=== PATIENT | female | born 1965 | race Caucasian/White ===

== ENCOUNTER → 2019-07-26 09:57 | Outpatient (CLI) | payer OTHER, SELFPAY ==
--- NOTE | 2019-07-26 | DI.MG.S_ITS ---
BILATERAL DIGITAL DIAGNOSTIC MAMMOGRAM 3D/2D WITH AUGMENTATION: 07/26/2019 CLINICAL: Left breast lump. Comparison is made to exams dated: 08/17/2018 mammogram, 06/21/2017 mammogram, and 09/22/2015 mammogram - [facility]. There are scattered fibroglandular elements in both breasts. Bilateral prepectoral silicone implants are present. There are irregular contor of the right implant. There are diffuse extracapsular silicone collections in the left breast. There is a stable extracapsular silicone in the left breast at 8 o'clock anterior depth. This likely correlates as palpated. No other significant masses or calcifications seen in either breast. IMPRESSION: INCOMPLETE: NEEDS ADDITIONAL IMAGING EVALUATION Palpable abnormality likely corresponds to extracapsular silicone in the left breast. A target ultrasound is recommended for further evaluation. This exam was interpreted at Station ID: [id number]. NOTE: For mammograms, a report in lay terms will be sent to the patient. Approximately 15% of breast malignancies will not be visualized mammographically. In the management of a palpable breast mass, a negative mammogram must not discourage biopsy of a clinically suspicious lesion. Electronically Signed By: Willie Martin M.D. slc/:07/26/2019 11:29:10 letter sent: Additional Imaging Needed ACR BI-RADS Category 0: Incomplete [id number]
--- NOTE | 2019-07-26 | DI.US.S_ITS ---
LIMITED ULTRASOUND OF LEFT BREAST: 07/26/2019 CLINICAL: Palpable left breast lump. Comparison is made to exams dated: 07/26/2019 mammogram - [facility], 08/17/2018 mammogram, 06/21/2017 mammogram, and 09/22/2015 mammogram - [facility]. Color flow and real-time ultrasound of the left breast 8-9 o'clock region were performed. Teresa scale images of the real-time examination were reviewed. Sensitivity is decreased due to free silicone in the left breast. There is a benign 2 cm x 1.1 cm x 1.3 cm round cyst in the left breast at 9 o'clock posterior depth 7 cm from the nipple. This round cyst is anechoic with a well-defined boundary and posterior acoustic enhancement. This may correlates as palpated. Color flow imaging demonstrates that there is no increase in vascularity. There also is a benign 0.6 cm round cyst in the left breast at 8:30 o'clock posterior depth 5 cm from the nipple. This round cyst is anechoic with a well-defined boundary and posterior acoustic enhancement. Color flow imaging demonstrates that there is no increase in vascularity. IMPRESSION: BENIGN There is no sonographic evidence of malignancy. Simple cyst in the left breast at 9 o'clock posterior depth measuring 2 cm is benign. This may correlate to the palpable abnormality. Alternatively, the palpable abnormality may correspond to extracapsular silicone in this region. Simple cyst in the left breast at 8:30 o'clock posterior depth measuring 0.6 cm is benign. A 1 year screening mammogram is recommended. The patient was advised to monitor the palpable area for significant change and return to clinic earlier for further evaluation if a hard mass is palpated. The imaging findings were reviewed with the patient as well as recommendations. Review of implant ruptures was also discussed. The patient requested recommendation for breast surgeon to discuss possible replacement/removal of breast implants. Discussion occurred over the phone with Dr. Martin who is remotely located on day of examination. This exam was interpreted at Station ID: [id number]. Electronically Signed By: Willie Martin M.D. slc/:07/26/2019 12:57:12 letter sent: Clinical Evaluation Ultrasound BI-RADS: 2 Benign
== END ==
PROVIDERS: Visit Provider Family Medicine
DX: R92.8 Other abnormal and inconclusive findings on diagnostic imaging of breast (principal); N60.02 Solitary cyst of left breast; N63.20 Unspecified lump in the left breast, unspecified quadrant; Z98.82 Breast implant status
CPT/HCPCS: 76642; 77066; G0279

== ENCOUNTER 2022-03-07 10:53 | Emergency (ER) | payer OTHER, SELFPAY ==
[2022-03-07] VITALS (7 sets, daily range): BP systolic 125–134; BP diastolic 60–68; PULSE 84–93; RESP 16; TEMP 36.2; O2SAT 97–99; BMI 33.9
--- NOTE | 2022-03-07 11:21 | ED_ITS ---
HPI - General Adult General Chief complaint: Abdominal Pain Stated complaint: R/O appendicitis or diverticulitis- ref by [facility] Time Seen by Provider: 03/07/22 11:13 Source: patient Mode of arrival: Ambulatory Limitations: no limitations History of Present Illness HPI narrative: Patient is a 56-year-old female. Is status post cholecystectomy. Is here for evaluation of a couple days of lower abdominal discomfort. She did have a bowel movement yesterday which she states was slightly harder than normal but does not necessarily feel like she is constipated. No urinary symptoms. No vaginal bleeding or discharge. No fevers. Was seen at the walk-in clinic and was sent to the emergency department for further evaluation. No vomiting. Related Data Previous Rx's Medication Instructions Recorded ciprofloxacin HCl 500 mg tablet 500 mg PO Q12H 10 days #20 tabs 03/07/22 (Cipro) metronidazole 500 mg tablet 500 mg PO TID 10 days #30 tabs 03/07/22 Review of Systems Review of Systems ROS Unobtainable: All systems reviewed & are unremarkable except as noted in HPI and below Constitutional Constitutional: Denies fever(s) Cardiovascular Cardiovascular: Denies chest pain Respiratory Respiratory: Reports system reviewed and no additional complaints, except as documented Gastrointestinal Gastrointestinal: Reports system reviewed and no additional complaints, except as documented Genitourinary Genitourinary: Reports system reviewed and no additional complaints, except as documented Musculoskeletal Musculoskeletal: Reports system reviewed and no additional complaints, except as documented Integumentary/Breasts Skin/Breast: Reports system reviewed and no additional complaints, except as documented Hematologic/Lymphatic On Anticoagulants: No Patient History Medical History Healthy adult Surgical History History of cholecystectomy Social History lives independently: Yes Exam Initial Vital Signs Initial Vital Signs: Vital Signs Blood Pressure 131/68 03/07/22 11:03 Const General: cooperative and healthy appearing [facility] Head: normal to inspection and normocephalic Resp Effort & Inspection: normal respiratory effort Auscultation: clear to auscultation bilaterally Cardio Rate: regular rate Rhythm: regular rhythm GI Inspection: normal to inspection Palpation: No firm and tender (Bilateral lower abdomen) Skin General: no rashes or lesions noted Neuro General: patient alert, patient awake and moves all extremities Extrem General: normal to inspection Psych Appearance: grossly normal and well kempt Course Orders Ordered: ED Orders 03/07/22 11:09 Urine Culture Stat Urine Microscopic Stat 03/07/22 11:16 Complete Blood Count AUTO DIFF Stat Comprehensive Metabolic Panel Stat Lipase Stat Partial Thromboplastin Time Stat Prothrombin Time INR Stat 03/07/22 11:22 CT abdomen pelvis w con Stat Discontinued Medications Sodium Chloride (Normal Saline 0.9%) 1,000 mls @ 1,000 mls/hr IV BOLUS ONE Stop: 03/07/22 12:21 Last Infusion: 03/07/22 11:57 Dose: 0 mls/hr Documented By: Admin: 03/07/22 11:30 Dose: 1,000 mls/hr Documented By: JAMAAL Vital Signs Vital signs: Vital Signs - 8 hr 03/07/22 11:05 03/07/22 11:03 03/07/22 11:04 Temperature 97.1 F L Pulse Rate 93 H 90 Respiratory Rate 16 Blood Pressure 131/68 131/68 Pulse Oximetry 99 99 Oxygen Delivery Method Room Air 03/07/22 11:16 03/07/22 11:16 Temperature Pulse Rate 87 Respiratory Rate Blood Pressure 134/67 Pulse Oximetry 99 Oxygen Delivery Method Medical Decision Making Lab Data Lab results reviewed: Yes I reviewed the patient's lab results. Result diagrams: 03/07/22 11:16 03/07/22 11:16 Labs: Lab Results 03/07/22 03/07/22 03/07/22 Range/Units 11:09 11:16 11:16 WBC 9.2 (4.5-11.0) X10^3/uL RBC 3.97 L (4.0-5.2) X10^6/uL Hgb 12.3 (12.0-16.0) g/dL Hct 36.6 (36-46) % MCV 92.1 (80-100) fL MCH 30.9 (26-34) PG MCHC 33.6 (30-36) % RDW 13.6 (11.6-14.8) % Plt Count 205 (150-400) X10^3/uL Neut % (Auto) 70.1 (50-75) % Lymph % (Auto) 18.6 L (25-40) % [place] % (Auto) 9.9 (3-14) % Eos % (Auto) 0.7 L (2-4) % Baso % (Auto) 0.7 (0-2) % Neut # (Auto) 6400 (1874-9492) /uL Lymph # (Auto) 1700 (6539-2793) /uL [place] # (Auto) 900 (0-900) /uL Eos # (Auto) 100 (0-450) /uL Baso # (Auto) 100 (0-100) /uL PT (10.1-12.7) SECONDS INR (0.9-1.3) APTT (26.4-36.2) SECONDS Sodium 139 (137-145) mmol/L Potassium 4.0 (3.4-5.1) mmol/L Chloride 104 (98-107) mmol/L Carbon Dioxide 25 (22-32) mmol/L BUN 13 (7-17) mg/dL Creatinine 0.69 (0.52-1.04) mg/dL Estimated GFR > 60 (>60) mL/min BUN/Creatinine Ratio 18.8 (6-22) Glucose 104 H (70-100) mg/dL Calcium 8.8 (8.4-10.2) mg/dL Total Bilirubin 0.9 (0.2-1.3) mg/dL AST 26 (14-36) IU/L ALT 23 (<35) IU/L Alkaline Phosphatase 94 (38-126) U/L Total Protein 7.3 (6.3-8.2) g/dL Albumin 4.2 (3.5-5.0) g/dL Globulin 3.1 (1.7-4.1) g/dL Albumin/Globulin Ratio 1.4 (1.0-2.8) Lipase 138 (23-300) U/L Urine RBC 0-1/hpf (0-5/HPF) Urine WBC 1-5/hpf (0-5/HPF) Ur Squamous Epith Cells 1-5 /hpf (0-5/HPF) Urine Bacteria Few (2-10) H (None) Ur Culture Indicated? Specimen cultured 03/07/22 Range/Units 11:16 WBC (4.5-11.0) X10^3/uL RBC (4.0-5.2) X10^6/uL Hgb (12.0-16.0) g/dL Hct (36-46) % MCV (80-100) fL MCH (26-34) PG MCHC (30-36) % RDW (11.6-14.8) % Plt Count (150-400) X10^3/uL Neut % (Auto) (50-75) % Lymph % (Auto) (25-40) % [place] % (Auto) (3-14) % Eos % (Auto) (2-4) % Baso % (Auto) (0-2) % Neut # (Auto) (8798-6064) /uL Lymph # (Auto) (8016-8889) /uL [place] # (Auto) (0-900) /uL Eos # (Auto) (0-450) /uL Baso # (Auto) (0-100) /uL PT 13.8 H (10.1-12.7) SECONDS INR 1.2 (0.9-1.3) APTT 32 (26.4-36.2) SECONDS Sodium (137-145) mmol/L Potassium (3.4-5.1) mmol/L Chloride (98-107) mmol/L Carbon Dioxide (22-32) mmol/L BUN (7-17) mg/dL Creatinine (0.52-1.04) mg/dL Estimated GFR (>60) mL/min BUN/Creatinine Ratio (6-22) Glucose (70-100) mg/dL Calcium (8.4-10.2) mg/dL Total Bilirubin (0.2-1.3) mg/dL AST (14-36) IU/L ALT (<35) IU/L Alkaline Phosphatase (38-126) U/L Total Protein (6.3-8.2) g/dL Albumin (3.5-5.0) g/dL Globulin (1.7-4.1) g/dL Albumin/Globulin Ratio (1.0-2.8) Lipase (23-300) U/L Urine RBC (0-5/HPF) Urine WBC (0-5/HPF) Ur Squamous Epith Cells (0-5/HPF) Urine Bacteria (None) Ur Culture Indicated? Urine Dip Bedside Urine Glucose Negative Bedside Urine Bilirubin - Negative Bedside Urine Ketone - Negative Urine Specific [place] 1.010 Bedside Urine Occult Blood +/- Bedside Urine pH 6.0 Bedside Urine Protein - Negative Bedside Urine Urobilinogen - Negative Bedside Urine Nitrite - Negative Bedside Urine Leukocytes + 70 Esterase Point of care testing: Urine Dip Bedside Urine Glucose Negative Bedside Urine Bilirubin - Negative Bedside Urine Ketone - Negative Urine Specific [place] 1.010 Bedside Urine Occult Blood +/- Bedside Urine pH 6.0 Bedside Urine Protein - Negative Bedside Urine Urobilinogen - Negative Bedside Urine Nitrite - Negative Bedside Urine Leukocytes + [address] scan - abdomen/pelvis: Radiologist's Impression: [address] [address] [address] Scan Report Signed Patient: Paulina Whittaker MR#: [id number] : 1965 Acct:[id number] Age/Sex: 56 / F Date of Service: 03/07/22 Loc: ED Accession Number: [id number] ?? Procedure: CT abdomen pelvis w con Ordering Provider: Celio Gonzalez D.O. PROCEDURE:? CT ABDOMEN PELVIS W CON ? INDICATIONS:? LLQ ABD pain ? TECHNIQUE:? After the administration of intravenous contrast, axial sections acquired from the lung bases to the pubic symphysis.? Coronal and sagittal reformats were performed.? For radiation dose reduction, the following was used:? automated exposure control, adjustment of mA and/or kV according to patient size.? ? COMPARISON:? None. ? FINDINGS: Image quality:? Excellent.? ? Lung bases:? Lung bases are clear.? Heart size is normal. ? Solid organs:? Liver: The liver has no mass or intrahepatic biliary ductal dilatation. The portal vein and hepatic veins are patent.? There is a 4 centimeter cyst of the right inferior tip of the liver. Biliary:? Status post cholecystectomy.? Pancreas: The pancreas has no mass or ductal dilatation. There is no surrounding inflammation. Spleen: Normal size. There are no masses. Adrenals: No hypertrophy or nodules. Kidneys: No obstructive calculus or hydronephrosis.? No solid mass. No cystic mass. ? Peritoneum and bowel:? The distal esophagus and stomach are normal.? The small bowel has a normal caliber and appearance. The terminal ileum is normal. The large bowel has diverticulosis with inflammation around the distal sigmoid consistent with acute diverticulitis.? There is no perforation or abscess..? The appendix is normal. No free fluid or air.? ? Nodes and vessels:? No retroperitoneal or mesenteric adenopathy by size criteria.? Aorta and inferior vena cava are normal in size.? ? Miscellaneous:? No abdominal wall mass or hernia. ? PELVIS:? Genitourinary:? The bladder has no wall thickening or mass. No bladder calcifications. ? Bones:? No suspicious bony lesions.? No vertebral body compression fractures.? ? IMPRESSION:? Diverticulitis of the sigmoid colon without perforation or abscess.? ? Dictated by: Don Gomez M.D. on 03/07/2022 at 11:22 ? ? Approved by: Don Gomez M.D. on 03/07/2022 at 11:25? MDM Narrative Medical decision making narrative: Patient does have a relatively benign abdomen. Her labs are unremarkable. CT scan consistent with diverticulitis which is also consistent with her presentation. Will treat with antibiotics. They were sent to the pharmacy of her choice. She was given return precautions. Expressed understanding and agreement. Discharge Plan Departure Patient Disposition: Home Clinical Impression: Diverticulitis Instructions: DI for Diverticulitis Activity Restrictions/Additional Instructions: Take all the antibiotics as directed. Contact your primary doctor for a follow- up. Return to the emergency department for any new or worsening symptoms. Prescriptions: New ciprofloxacin HCl [Cipro] 500 mg tablet 500 mg PO Q12H 10 Days Qty: 20 0RF metronidazole 500 mg tablet 500 mg PO TID 10 Days Qty: 30 0RF
--- NOTE | 2022-03-07 11:22 | DI.CT.S_ITS ---
PROCEDURE: CT ABDOMEN PELVIS W CON INDICATIONS: LLQ ABD pain TECHNIQUE: After the administration of intravenous contrast, axial sections acquired from the lung bases to the pubic symphysis. Coronal and sagittal reformats were performed. For radiation dose reduction, the following was used: automated exposure control, adjustment of mA and/or kV according to patient size. COMPARISON: None. FINDINGS: Image quality: Excellent. Lung bases: Lung bases are clear. Heart size is normal. Solid organs: Liver: The liver has no mass or intrahepatic biliary ductal dilatation. The portal vein and hepatic veins are patent. There is a 4 centimeter cyst of the right inferior tip of the liver. Biliary: Status post cholecystectomy. Pancreas: The pancreas has no mass or ductal dilatation. There is no surrounding inflammation. Spleen: Normal size. There are no masses. Adrenals: No hypertrophy or nodules. Kidneys: No obstructive calculus or hydronephrosis. No solid mass. No cystic mass. Peritoneum and bowel: The distal esophagus and stomach are normal. The small bowel has a normal caliber and appearance. The terminal ileum is normal. The large bowel has diverticulosis with inflammation around the distal sigmoid consistent with acute diverticulitis. There is no perforation or abscess.. The appendix is normal. No free fluid or air. Nodes and vessels: No retroperitoneal or mesenteric adenopathy by size criteria. Aorta and inferior vena cava are normal in size. Miscellaneous: No abdominal wall mass or hernia. PELVIS: Genitourinary: The bladder has no wall thickening or mass. No bladder calcifications. Bones: No suspicious bony lesions. No vertebral body compression fractures. IMPRESSION: Diverticulitis of the sigmoid colon without perforation or abscess. Dictated by: Don Gomez M.D. on 03/07/2022 at 11:22 Approved by: Don Gomez M.D. on 03/07/2022 at 11:25
[2022-03-07 11:23] LABS: Add Manual Diff / Slide Review NO; Basophils Absolute Auto 100 /uL (0-100); Basophils Percent Auto 0.7 % (0-2); Eosinophils Absolute Auto 100 /uL (0-450); Eosinophils Percent Auto 0.7 % (2-4); Hematocrit 36.6 % (36-46); Hemoglobin 12.3 g/dL (12.0-16.0); Lymphocytes Absolute Auto 1700 /uL (1100-4500); Lymphocytes Percent Auto 18.6 % (25-40); Mean Corpuscular HGB Conc 33.6 % (30-36); Mean Corpuscular Hemoglobin 30.9 PG (26-34); Mean Corpuscular Volume 92.1 fL (80-100); Monocytes Absolute Auto 900 /uL (0-900); Monocytes Percent Auto 9.9 % (3-14); Neutrophils Absolute Auto 6400 /uL (1500-7000); Neutrophils Percent Auto 70.1 % (50-75); Platelet Count 205 X10^3/uL (150-400); Red Blood Cell Count 3.97 X10^6/uL (4.0-5.2); Red Cell Distribution Width 13.6 % (11.6-14.8); White Blood Cell Count 9.2 X10^3/uL (4.5-11.0)
[2022-03-07] MEDS: SODIUM CHLORIDE 0.9% 1,000 ML 1000 ML IV (11:30)
[2022-03-07 11:31] LABS: INR 1.2 (0.9-1.3); Prothrombin Time 13.8 SECONDS (10.1-12.7)
[2022-03-07 11:34] LABS: PTT Partial Thromboplastin Tim 32 SECONDS (26.4-36.2)
[2022-03-07 11:35] LABS: Alanine Aminotransferase 23 IU/L (<35); Albumin 4.2 g/dL (3.5-5.0); Albumin Globulin Ratio 1.4 (1.0-2.8); Alkaline Phosphatase 94 U/L (38-126); Aspartate Aminotransferase 26 IU/L (14-36); BUN Creatinine Ratio 18.8 (6-22); Bilirubin Total 0.9 mg/dL (0.2-1.3); Blood Urea Nitrogen 13 mg/dL (7-17); Calcium 8.8 mg/dL (8.4-10.2); Carbon Dioxide 25 mmol/L (22-32); Chloride 104 mmol/L (98-107); Estimated Glomerular Filt Rate > 60 mL/min (>60); Globulin 3.1 g/dL (1.7-4.1); Glucose 104 mg/dL (70-100); HEMOLYSIS < 15 (0-50); Lipase 138 U/L (23-300); Sodium 139 mmol/L (137-145); Total Protein 7.3 g/dL (6.3-8.2)
[2022-03-07 11:44] LABS: Bacteria Urine Few (2-10); Culture Indicated Urine Specimen Cultured; RBC Urine 0-1/HPF (0-5/HPF); Squamous Epithelial Cell Urine 1-5 /HPF (0-5/HPF); WBC Urine 1-5/HPF (0-5/HPF)
== END 2022-03-07 12:46 | disposition home or self-care (01) ==
PROVIDERS: Emergency Provider Emergency Medicine
DX: K57.92 Diverticulitis of intestine, part unspecified, without perforation or abscess without bleeding (principal)
CPT/HCPCS: 36415; 74177; 80053; 81003; 81015; 83690; 85025; 85610; 85730; 87086; 99284; Q9967

== ENCOUNTER 2022-03-27 12:58 | Emergency (ER) | payer OTHER, SELFPAY ==
[2022-03-27] VITALS (10 sets, daily range): BP systolic 113–130; BP diastolic 58–79; PULSE 69–87; RESP 13–26; TEMP 37.1; O2SAT 97–100; BMI 32.8
[2022-03-27 13:59] LABS: Add Manual Diff / Slide Review NO; Basophils Absolute Auto 0 /uL (0-100); Basophils Percent Auto 0.6 % (0-2); Eosinophils Absolute Auto 100 /uL (0-450); Eosinophils Percent Auto 1.7 % (2-4); Hemoglobin 13.1 g/dL (12.0-16.0); Lymphocytes Absolute Auto 1600 /uL (1100-4500); Lymphocytes Percent Auto 36.7 % (25-40); Mean Corpuscular HGB Conc 33.5 % (30-36); Mean Corpuscular Hemoglobin 30.4 PG (26-34); Mean Corpuscular Volume 90.6 fL (80-100); Monocytes Absolute Auto 500 /uL (0-900); Monocytes Percent Auto 10.9 % (3-14); Neutrophils Absolute Auto 2300 /uL (1500-7000); Neutrophils Percent Auto 50.1 % (50-75); Platelet Count 316 X10^3/uL (150-400); Red Blood Cell Count 4.31 X10^6/uL (4.0-5.2); Red Cell Distribution Width 13.4 % (11.6-14.8); White Blood Cell Count 4.5 X10^3/uL (4.5-11.0)
[2022-03-27 14:13] LABS: Alanine Aminotransferase 19 IU/L (<35); Albumin 4.4 g/dL (3.5-5.0); Albumin Globulin Ratio 1.4 (1.0-2.8); Alkaline Phosphatase 84 U/L (38-126); Aspartate Aminotransferase 23 IU/L (14-36); BUN Creatinine Ratio 12.7 (6-22); Bilirubin Total 0.4 mg/dL (0.2-1.3); Blood Urea Nitrogen 10 mg/dL (7-17); Calcium 9.2 mg/dL (8.4-10.2); Carbon Dioxide 27 mmol/L (22-32); Chloride 107 mmol/L (98-107); Estimated Glomerular Filt Rate > 60 mL/min (>60); Globulin 3.1 g/dL (1.7-4.1); Glucose 95 mg/dL (70-100); HEMOLYSIS < 15 (0-50); Lipase 200 U/L (23-300); Sodium 140 mmol/L (137-145); Total Protein 7.5 g/dL (6.3-8.2)
[2022-03-27] MEDS: SODIUM CHLORIDE 0.9% 1,000 ML 1000 ML IV (17:14)
--- NOTE | 2022-03-27 18:53 | ED_ITS ---
HPI - Abdominal Pain General Chief Complaint: Abdominal Pain Stated Complaint: C-Diff + Time Seen by Provider: 03/27/22 18:06 Source: patient Mode of arrival: Ambulatory History of Present Illness HPI narrative: 56-year-old female nonsmoker presents at the request of her primary care provider. She is had a very unfortunate summer that started with gallbladder surgery, followed by an episode of diverticulitis and then recent diagnosis of COVID. She had been having generalized abdominal cramps and frequent loose stools and had an outpatient stool sample that today resulted out as positive for Clostridium difficile. She has been nauseated but denies vomiting. She is been achy but denies any fever or chills. She has no chest pain or shortness of breath and denies any dysuria, frequency or urgency. Her doctor's office called and told her to come see us. She was actually feeling better over the course of the day that she had been recently and admits to tolerating orals without difficulty Related Data Previous Rx's Medication Instructions Recorded albuterol sulfate 90 mcg/actuation 2 puff inhalation Q6H PRN 03/19/22 aerosol inhaler shortness of breath or wheezing #6.7 grams nirmatrelvir 300 mg (150 mg x See Rx Instructions PO .COMPLEX 03/19/22 2)-ritonavir 100 mg tablet (EUA) #30 tabs (Paxlovid 300 mg () dicyclomine 20 mg tablet 20 mg PO TID PRN abdominal 03/27/22 discomfort #20 tabs fidaxomicin 200 mg tablet 200 mg PO BID 10 days #20 tabs 03/27/22 ondansetron 4 mg disintegrating 4 mg PO TID-QID PRN nausea and 03/27/22 tablet vomiting #10 tabs vancomycin 125 mg capsule 125 mg PO Q6H 10 days #40 caps 03/27/22 Allergies Allergy/AdvReac Type Severity Reaction Status Date / Time Latex, Natural Rubber Allergy Mild Rash Verified 03/27/22 13:05 Review of Systems Review of Systems Narrative: GENERAL: See HPI HEENT: Denies sinus pain, ear pain, sore throat, difficulty swallowing, dizziness. RESPIRATORY: See HPI CARDIOVASCULAR: Denies chest pain, palpitations, orthopnea, edema, GASTROINTESTINAL: See HPI. : Denies dysuria, frequency, incontinence, hematuria, urinary retention. MUSCULOSKELETAL: denies weakness, joint pain, or bony pain SKIN: Denies rash, skin lesions, or other NEUROLOGIC: Denies weakness, headache, numbness, change in speech, confusion, seizures, incoordination. PSYCHIATRIC: No concerning psychosocial issues. 12 point review of systems is negative except for those stated above Patient History Medical History Healthy adult Surgical History History of cholecystectomy Social History lives independently: Yes Smoking Status: Never smoker Smoking Status: Never smoker Substance Use Type: does not use Exam Narrative Exam Narrative: GENERAL: [56] year old patient appears stated age. Well-developed patient, in mild distress. HEAD: Atraumatic. Normocephalic. EYES: Pupils equal round and reactive. Extraocular motions intact. No scleral icterus. No injection or drainage. ENT: Nose without bleeding, purulent drainage. Throat without erythema, tonsil lar hypertrophy or exudate. Airway patent. NECK: Trachea midline. Non tender CARDIOVASCULAR: Regular rate and rhythm without murmurs, gallops, or rubs. RESPIRATORY: Clear to auscultation. Breath sounds equal bilaterally. No wheezes, rales, or rhonchi. GASTROINTESTINAL: Abdomen soft, non-tender, nondistended. Bowel sounds present in all 4 quadrants EXTREMITIES: No edema or joint tenderness. BACK: Nontender without deformity or crepitance. No flank tenderness. NEURO: AOx3. SKIN: No rash or erythema of visible areas Initial Vital Signs Initial Vital Signs: Vital Signs Temperature 98.7 F 03/27/22 13:05 Pulse Rate 87 03/27/22 13:05 Respiratory Rate 18 03/27/22 13:05 Blood Pressure 126/75 03/27/22 13:05 Pulse Oximetry 97 03/27/22 13:05 Oxygen Delivery Method 03/27/22 13:05 Course Orders Ordered: Discontinued Medications Sodium Chloride (Normal Saline 0.9%) 1,000 mls @ 1,000 mls/hr IV BOLUS ONE Stop: 03/27/22 18:10 Last Infusion: 03/27/22 19:04 Dose: 0 mls/hr Documented By: Admin: 03/27/22 17:14 Dose: 1,000 mls/hr Documented By: ROGERIO(2) Ondansetron HCl (Ondansetron 4 Mg Odt Prepack) 1 bottle MISC SEEINSTR ONE Stop: 03/27/22 19:48 Last Admin: 03/27/22 20:01 Dose: 1 bottle Documented By: GRACIELA Vital Signs Vital signs: Vital Signs - 8 hr 03/27/22 17:00 03/27/22 17:00 03/27/22 17:44 Pulse Rate 69 Respiratory Rate 15 Blood Pressure 119/66 Pulse Oximetry 98 98 Oxygen Delivery Method 03/27/22 17:45 03/27/22 17:45 03/27/22 18:00 Pulse Rate 70 Respiratory Rate Blood Pressure 126/70 128/70 Pulse Oximetry 98 Oxygen Delivery Method 03/27/22 18:00 03/27/22 20:01 Pulse Rate 81 82 Respiratory Rate 17 Blood Pressure 129/79 Pulse Oximetry 97 98 Oxygen Delivery Method Room Air MDM - Abdominal Pain Lab Data Result diagrams: 03/27/22 13:45 03/27/22 13:45 Labs: Lab Results 03/27/22 03/27/22 Range/Units 13:45 13:45 WBC 4.5 (4.5-11.0) X10^3/uL RBC 4.31 (4.0-5.2) X10^6/uL Hgb 13.1 (12.0-16.0) g/dL Hct 39.0 (36-46) % MCV 90.6 (80-100) fL MCH 30.4 (26-34) PG MCHC 33.5 (30-36) % RDW 13.4 (11.6-14.8) % Plt Count 316 (150-400) X10^3/uL Neut % (Auto) 50.1 (50-75) % Lymph % (Auto) 36.7 (25-40) % [place] % (Auto) 10.9 (3-14) % Eos % (Auto) 1.7 L (2-4) % Baso % (Auto) 0.6 (0-2) % Neut # (Auto) 2300 (3726-5508) /uL Lymph # (Auto) 1600 (8783-4881) /uL [place] # (Auto) 500 (0-900) /uL Eos # (Auto) 100 (0-450) /uL Baso # (Auto) 0 (0-100) /uL Sodium 140 (137-145) mmol/L Potassium 4.0 (3.4-5.1) mmol/L Chloride 107 (98-107) mmol/L Carbon Dioxide 27 (22-32) mmol/L BUN 10 (7-17) mg/dL Creatinine 0.79 (0.52-1.04) mg/dL Estimated GFR > 60 (>60) mL/min BUN/Creatinine Ratio 12.7 (6-22) Glucose 95 (70-100) mg/dL Calcium 9.2 (8.4-10.2) mg/dL Total Bilirubin 0.4 (0.2-1.3) mg/dL AST 23 (14-36) IU/L ALT 19 (<35) IU/L Alkaline Phosphatase 84 (38-126) U/L Total Protein 7.5 (6.3-8.2) g/dL Albumin 4.4 (3.5-5.0) g/dL Globulin 3.1 (1.7-4.1) g/dL Albumin/Globulin Ratio 1.4 (1.0-2.8) Lipase 200 (23-300) U/L Point of care testing: Point of Care Testing Test Results Negative Urine Dip Bedside Urine Glucose Negative Bedside Urine Bilirubin - Negative Bedside Urine Ketone - Negative Urine Specific [place] 1.010 Bedside Urine Occult Blood - Negative Bedside Urine Protein - Negative Bedside Urine Urobilinogen - Negative Bedside Urine Nitrite - Negative Bedside Urine Leukocytes - Negative Esterase MDM Narrative Medical decision making narrative: 56-year-old female with reassuring history, physical, labs has pain well controlled, no signs of respiratory distress and is tolerating orals. She is been on multiple courses of antibiotics over the summer and recently had GI symptoms concerning for C diff. She had an outside test that confirmed C diff colitis earlier today and was sent here for treatment. There is no indication for hospitalization, I talked to her extensively about return precautions, dietary modifications in the importance of close follow-up. Questions have been answered to her apparent satisfaction Discharge Plan Departure Patient Disposition: Home Clinical Impression: C. difficile colitis Instructions: DI for Antibiotic -- associated Colitis -- C difficile Activity Restrictions/Additional Instructions: *You have been diagnosed with [C diff colitis] * As we discussed your history and physical exam as well as labs are very reassuring. *What to do: *Please continue to take your regular medications as directed. [x ] New medication prescriptions sent to your pharmacy: [ [facility] in [place]]. As we discussed, Fidaxomicin is the preferred treatment for C. diff. I made a note to the pharmacist to only fill the Vancomycin prescription in the event that they are unable to fill the Fidaxomicin *Please follow up with your primary care provider in 2-3 days, call for an appointment. Let them know you were seen in the Emergency Department and that we ask that you be seen in follow up. We will electronically transmit a record of today's note if your PCP is in our system *Please consider a clear liquid diet for the next 24-48 hours and then slowly advance to regular as tolerated. Also, try to avoid alcohol, nicotine, caffeine, spicy, acidic or fatty foods as this may worsen your symptoms *If you do not have a primary care provider please contact the [facility] Resource line at [phone]. They will ask some questions about your medical history and help get you set up with a doctor in the community. *Return to Emergency Department if you should have any new, worsening or concerning symptoms, such as [fever greater than 101 F, shaking chills, wor sening pain, persistent vomiting or other bothersome symptoms] Prescriptions: New fidaxomicin 200 mg tablet 200 mg PO BID 10 Days Qty: 20 0RF dicyclomine 20 mg tablet 20 mg PO TID PRN (Reason: abdominal discomfort) Qty: 20 0RF vancomycin 125 mg capsule 125 mg PO Q6H 10 Days Qty: 40 0RF Rx Instructions: please fill only if unable to fill Fidaxomicin ondansetron 4 mg tablet,disintegrating 4 mg PO TID-QID PRN (Reason: nausea and vomiting) Qty: 10 0RF No Action Paxlovid (EUA) 150 mg x 2- 100 mg tablet See Rx Instructions PO .COMPLEX Qty: 30 0RF Rx Instructions: take TWO 150 mg tablets of nirmatrelvir with ONE 100 mg tablet of ritonavir twice daily for 5 days PO albuterol sulfate 90 mcg/actuation HFA aerosol inhaler 2 puff inhalation Q6H PRN (Reason: shortness of breath or wheezing) Qty: 6.7 0RF Referrals: Kam,Nely A, PA-C [Primary Care Provider] - Visit Report Forms: Patient Portal/API
[2022-03-27] MEDS: ONDANSETRON 4 MG ODT PREPACK 1 BOTTLE MISC (20:01)
== END 2022-03-27 20:02 | disposition home or self-care (01) ==
PROVIDERS: Family Medicine Addiction Medicine; Emergency Provider Emergency Medicine; PCP Physician Assistant
DX: A04.72 Enterocolitis due to Clostridium difficile, not specified as recurrent (principal); Z86.16 Personal history of COVID-19
CPT/HCPCS: 36415; 80053; 81003; 81025; 83690; 85025; 93005; 93010; 96360; 96361; 99284

== ENCOUNTER → 2023-09-09 09:33 | Outpatient (CLI) | payer OTHER, SELFPAY ==
--- NOTE | 2023-09-09 | DI.MG.S_ITS ---
BILATERAL DIGITAL DIAGNOSTIC MAMMOGRAM 3D/2D WITH AUGMENTATION: 09/09/2023 CLINICAL: Right breast pain. Comparison is made to exams dated: 02/17/2022 mammogram - [facility], 07/26/2019 mammogram - [facility], and 08/17/2018 mammogram - [facility]. Both breasts are heterogeneously dense, which may obscure small masses (category c / 51-75% glandular tissue). Unchanged innumerable hyperdense masses in the left breast. New innumerable hyperdense masses in the right breast. Bilateral implants are present. No other significant masses, calcifications, or other findings are seen in either breast. IMPRESSION: BENIGN Unchanged innumerable hyperdense masses in the left breast. New innumerable hyperdense masses in the right breast. Bilateral implants are present. These are compatible with extracapsular rupture. Right breast seems to have occurred sometime in the last year, corresponding to right breast diffuse pain. There is no mammographic evidence of malignancy, however, presence of extracapsular rupture significantly limits evaluation. Return to annual mammogram screening schedule is recommended. Consider further imaging with MRI if needed. Based on the Tyrer Cuzick model (a risk assessment model) the patient's lifetime risk is 10.2% and her 10 year risk is 3.8%. According to the ACR, ACS, and NCCN guidelines, an annual breast MRI exam along with mammogram is recommended if the patient's lifetime risk is 20% or greater. This exam was interpreted at Station ID: [id number]. NOTE: For mammograms, a report in lay terms will be sent to the patient. Approximately 15% of breast malignancies will not be visualized mammographically. In the management of a palpable breast mass, a negative mammogram must not discourage biopsy of a clinically suspicious lesion. Electronically Signed By: Ariel Eduardo M.D. lc/:09/09/2023 10:24:10 letter sent: Clinical Evaluation ACR BI-RADS Category 2: Benign Finding(s) [id number]
== END ==
LOC: MAMMO 09:33
PROVIDERS: PCP Internal Medicine; Referring Provider Internal Medicine; Visit Provider Internal Medicine
DX: N64.4 Mastodynia (principal); N63.15 Unspecified lump in the right breast, overlapping quadrants; N63.25 Unspecified lump in the left breast, overlapping quadrants; Z98.82 Breast implant status
CPT/HCPCS: 77066; G0279

== ENCOUNTER → 2024-05-04 11:34 | Outpatient (CLI) | payer BC, SELFPAY ==
[2024-05-04 13:18] LABS: Alanine Aminotransferase 14 IU/L (<35); Albumin 4.3 g/dL (3.5-5.0); Albumin Globulin Ratio 1.4 (1.0-2.8); Alkaline Phosphatase 71 U/L (38-126); Aspartate Aminotransferase 22 IU/L (14-36); BUN Creatinine Ratio 24.7 (6-22); Bilirubin Total 0.5 mg/dL (0.2-1.3); Blood Urea Nitrogen 18 mg/dL (7-17); Calcium 9.4 mg/dL (8.4-10.2); Carbon Dioxide 27 mmol/L (22-32); Chloride 103 mmol/L (98-107); Estimated Glomerular Filt Rate > 60 mL/min (>60); Glucose 80 mg/dL (70-100); HEMOLYSIS 38 (0-50); Potassium 4.3 mmol/L (3.4-5.1); Sodium 136 mmol/L (137-145); Total Protein 7.3 g/dL (6.3-8.2)
[2024-05-04 16:24] LABS: TSH w/ Reflex to FT4 2.06 uIU/mL (0.47-4.68)
== END ==
LOC: LAB 11:37
PROVIDERS: PCP Internal Medicine; Referring Provider Internal Medicine; Visit Provider Internal Medicine
DX: R19.7 Diarrhea, unspecified (principal)
CPT/HCPCS: 36415; 80053; 84443

== ENCOUNTER → 2025-08-09 09:27 | Outpatient (CLI) | payer BC, SELFPAY ==
--- NOTE | 2025-08-09 09:29 | DI.MG.S_ITS ---
MM diagnostic mammo implant BI: 08/09/2025. BI-RADS: 2 CLINICAL: 60-year old female for bilateral diagnostic mammogram. Tyrer-Cuzick lifetime risk of 10.6%. No personal or first-degree family history of breast cancer. The patient reports generalized lumpiness, pain (1 year) in the right breast and recent injury (1 year) in the left breast. The patient has bilateral implants. PRIOR EXAMS 09/09/2023, 02/17/2022, 07/26/2019. MAMMOGRAPHY TECHNIQUE: 2D and 3D (tomosynthesis) digital mammographic views obtained, with additional images as needed for full coverage. Current study was also evaluated with a Computer Aided Detection (CAD) system. DENSITY C. The breasts are heterogeneously dense, which may obscure small masses. IMPLANTS Breast implants present. There are ruptured, retroglandular, silicone implants. Free silicone present. MAMMOGRAPHY FINDINGS Bilateral: Ruptured silicone implants with free silicone . There are no suspicious masses, calcifications, or other findings in the breast. The degree of extracapsular silicone appears to have increased over time and may correlate to the patient's reported generalized pain and lumpiness in the right breast. IMPRESSION: * No evidence of malignancy with benign findings. * Implant noted with definite rupture and free silicone - details above. RECOMMENDATIONS Bilateral * Consider breast MRI for supplemental screening given limitations on mammogram due to free silicone. * Annual screening mammography in one year. COMMENTS: Findings and recommendations were conveyed to the patient during today's evaluation. The patient can also consider referral to plastic surgery given symptoms which may be related with implant rupture. OVERALL ASSESSMENT CATEGORY BI-RADS-2: Benign. The [employer] recommends annual screening mammography beginning at age 40 for women with average risk of breast cancer. ELECTRONICALLY SIGNED: Ashley Sal M.D. on 08/09/2025 at 01:14:36 PM PT Interpreting Station ID: [id number]
== END ==
LOC: MAMMO 09:28
PROVIDERS: PCP Internal Medicine; Referring Provider Internal Medicine; Visit Provider Internal Medicine
DX: R92.8 Other abnormal and inconclusive findings on diagnostic imaging of breast (principal); T85.43XA Leakage of breast prosthesis and implant, initial encounter; N64.4 Mastodynia; R92.333 Mammographic heterogeneous density, bilateral breasts; L29.89 Other pruritus
CPT/HCPCS: 77066; G0279